=== PATIENT | female | born 1990 | race Caucasian/White ===

== ENCOUNTER 2019-01-27 06:49 | Day surgery (SDC) | payer OTHER ==
[2019-01-27] VITALS (10 sets, daily range): BP systolic 103–136; BP diastolic 61–73; PULSE 54–80; RESP 15–19
[~2019-01-27 06:49] MED LIST: CEFAZOLIN 2 GM/50 ML (PMX) 50 ML IVPB SCH; SOD CHLORIDE 0.9% 1,000 ML IV SCH
[2019-01-27] MEDS ORDERED: LIDOCAINE 2% (SDV) 5 ML INJ ONE (07:00)
[2019-01-27] MEDS ORDERED: BUPIVACAINE 0.25% (MPF) 30 ML INJ ONE (07:54)
--- NOTE | 2019-01-27 08:02 | PREAC ---
Date/Time of Note Date/Time of Note DATE: 01/27/19 TIME: 08:01 Anesthesia Eval and Record Evaluation Time Pre-Procedure Interview DATE: 01/27/19 TIME: 08:01 Age 28 Sex female NPO: 8 hrs Preoperative diagnosis RIGHT AXILLARY MASS Planned procedure EXCISION RIGHT AXILLARY MASS Past Medical History Past Medical History: None Surgery & Anesthesia Issues No known issue Meds Anticoagulation: No Beta Anirudh within 24 hr: No Reason Beta Anirudh not given: Pt. not on B-Anirudh No Active Prescriptions or Reported Meds Current Medications Cefazolin Sodium/ Dextrose 50 ml @ 100 mls/hr ONCE IVPB ; Start 01/27/19 at 06:00; Stop 01/27/19 at 14:00 Sodium Chloride 1,000 ml @ 75 mls/hr [id number] IV ; Start 01/27/19 at 06:00; Stop 01/27/19 at 23:00 Meds reviewed: Yes Allergies Coded Allergies: No Known Drug Allergies (Verified Allergy, Unknown, 01/27/19) Allergies Reviewed: Yes Labs/Studies Labs Reviewed: Reviewed by anesthesiologist Result Diagram: 01/27/19 0722 Laboratory Tests 01/27/19 07:22 test: Negative Pre-procedure Exam Airway: Adequate mouth opening, Adequate thyromental dist Mallampati: Mallampati II Teeth: Normal Lung: Normal Heart: Normal ASA Physical Status ASA physical status: 1 Emergency: None Planned Anesthetic General/MAC: MAC Planned Pain Management Parenteral pain med Pre-operative Attestations Prior to commencing anesthesia and surgery, the patient was re-evaluated, there was verification of: *The patient's identity *The results of appropriate recent lab work and preoperative vital signs *The above evaluation not changing prior to induction *Anesthetic plan, risk benefits, alternative and complications discussed with patient/family; questions answered; patient/family understands, accepts and wishes to proceed. Marcus Paiz M.D. Jan 27, 2019 08:02
[2019-01-27] MEDS ORDERED: LIDOCAINE 1% (MPF) 30 ML INJ ONE (08:08)
[2019-01-27] MEDS ORDERED: CEFAZOLIN 1 GM INJ ONE (08:10)
[2019-01-27] MEDS ORDERED: FENTAnyl 50 MCG/ML VIAL ONE (08:10)
[2019-01-27] MEDS ORDERED: ONDANSETRON 4 MG INJ ONE (08:10)
[2019-01-27] MEDS ORDERED: MIDAZOLAM 1 MG/ML 2 ML INJ ONE (08:10)
[2019-01-27] MEDS ORDERED: PROPOFOL 20 ML ONE (08:10)
[2019-01-27] MEDS ORDERED: hydrALAzine 20 MG INJ IV PRN (08:30)
[2019-01-27] MEDS ORDERED: HYDROmorphONE 1 MG/5 ML IV SYRINGE IV PRN ×3 (08:30)
[2019-01-27] MEDS ORDERED: ONDANSETRON 4 MG INJ IV PRN (08:30)
[2019-01-27] MEDS ORDERED: OXYCODONE/ACETAMINOPHEN (5/325) TAB PO PRN ×2 (08:30)
[2019-01-27] MEDS ORDERED: FENTAnyl 50 MCG/ML VIAL IV PRN ×3 (08:30)
[2019-01-27] MEDS ORDERED: ALBUTEROL 0.083% (NEB) 2.5 MG/3 ML AMP HHN PRN (08:30)
[2019-01-27] MEDS ORDERED: MIDAZOLAM 1 MG/ML 2 ML INJ IV PRN (08:30)
[2019-01-27] MEDS ORDERED: TRIMETHOBENZAMIDE 100 MG/ML VIAL IM PRN (08:30)
[2019-01-27] MEDS ORDERED: LABETALOL HCL 20MG INJ IV PRN (08:30)
[2019-01-27] MEDS ORDERED: DIPHENHYDRAMINE 50 MG INJ IV PRN (08:30)
[2019-01-27] MEDS ORDERED: EPHEDrine SULFATE 50 MG/5 ML SYG IV PRN (08:30)
[2019-01-27] MEDS ORDERED: MEPERIDINE 25 MG INJ IV PRN (08:30)
[2019-01-27] MEDS ORDERED: IPRATROPIUM (NEB) 0.5 MG/2.5 ML AMP HHN PRN (08:30)
--- NOTE | 2019-01-27 08:43 | OPR ---
Date/Time of Note Date/Time of Note DATE: 01/27/19 TIME: 08:41 Operative Report Procedure Date: Jan 27, 2019 Preoperative Diagnosis right axillary mass Postoperative Diagnosis same Operation/Procedure Performed 1. excision of right axillary mass 5 cm mass 5 cm incision 2. localized adjacent tissue transfer with the use of skin flaps 10 sq cm defect of right axilla 3. therapeutic injection of subcutaneous local anesthesia Surgeon see signature line Licensed Prosthetist none Anesthesia Type: general Estimated Blood Loss: 0 - 10 ml's Transfusion none Specimen right axillary mass Grafts/Implants none Complications none Pt Condition Post Procedure: stable Indications This is a 28-year-old female with symptomatic right axillary mass. She requests surgical excision. Risks alternatives benefits and personal were discussed the patient. Patient expresses understanding and consents to the operation. Procedure Description The patient is taken to the OR and prepped and draped in usual sterile fashion. Surgical timeout is performed. IV antibiotics given. Therapeutic still continues local anesthesia is injected all around the right axillary mass. 15 blade is used to make elliptical incision around the mass in the right axilla. Dissection with cautery is good onto the mass and the masses are convinced excised. Good hemostasis established. Due to tissue defect localized patient especially with these complexes performed. Multilayer closure injected 0 Vicryl in interrupted 2-0 nylon. Dry dressings were applied. Karel POWELL Jan 27, 2019 08:43
--- NOTE | 2019-01-27 08:45 | PAC ---
Date/Time of Note Date/Time of Note DATE: 01/27/19 TIME: 08:45 Post-Anesthesia Notes Post-Anesthesia Note Last documented vital signs HR 76 RR 14 BP 114/75 T 98.1 Activity: WNL Respiratory function: WNL Cardiovascular function: WNL Mental status: Baseline Pain reasonably controlled: Yes Hydration appropriate: Yes Nausea/Vomiting absent: Yes Marcus Paiz M.D. Jan 27, 2019 08:45
--- NOTE | 2019-01-27 08:50 | OPR ---
Date/Time of Note Date/Time of Note DATE: 01/27/19 TIME: 08:47 Operative Report Procedure Date: Jan 27, 2019 Preoperative Diagnosis right axillary mass Postoperative Diagnosis same Operation/Procedure Performed 1. right axillary mass excision 5 cm mass 5 cm incision 2. localized adjacent tissue transfer with the use of skin flaps right axilla 10 sq cm defect 3. therapeutic injection of subcutaneous local anesthesia Surgeon see signature line Distribution [employer] Assistant none Anesthesia Type: general Estimated Blood Loss: 0 - 10 ml's Transfusion none Specimen right axillary mass Grafts/Implants none Complications none Pt Condition Post Procedure: stable Indications This is a 28-year-old female with a right axillary mass. She requires surgical excision of the right axillary mass. Risks alternatives benefits and personally discussed the patient. Patient expressed understanding and consents to the operation. Procedure Description Patient taken to the OR and prepped and draped using sterile fashion. Surgical time was performed. IV antibiotics were given. Therapy secondary to local anesthesia was injected at the right axillary mass. Elliptical incision was mad e with a 15 blade over the right axillary mass. Dissection with cautery is good onto the mass and cigarettes and excised. Good hemostasis status. Due to tissue defect localization to stress of the disc and flexes performed. Multilayer closure with interrupted 3-0 Vicryl and the skin is closed with interrupted 2-0 nylon. Karel POWELL Jan 27, 2019 08:50
[2019-01-27] MEDS ORDERED: HYDROCODONE/APAP (5/325) TAB PO ONE (09:00)
== END 2019-01-27 10:12 | disposition home or self-care (01) ==
LOC: SDS 06:49
PROVIDERS: ATTEND Surgery
DX: D36.0 Benign neoplasm of lymph nodes (principal)
CPT/HCPCS: 14040; 80053; 85025; 85610; 85730; 88307; J0690; J2250; J2405; J3010; Z7512; Z7610